=== PATIENT | female | born 1955 | race Two or more races ===

== ENCOUNTER 2017-05-23 09:40 | Day surgery (SDC) | payer MEDICARE, OTHER ==
[2017-05-23] MEDS ORDERED: PROPOFOL 40 ML (11:22)
[2017-05-23] MEDS ORDERED: LIDOCAINE 100 MG SYRINGE (11:22)
== END 2017-05-23 13:30 | disposition home or self-care (01) ==
LOC: GIL 09:40
DX: Z12.11 Encounter for screening for malignant neoplasm of colon (principal); D12.6 Benign neoplasm of colon, unspecified; K64.8 Other hemorrhoids; E11.9 Type 2 diabetes mellitus without complications; I10 Essential (primary) hypertension; E78.5 Hyperlipidemia, unspecified
CPT/HCPCS: 45385; 82962; 88305